=== PATIENT | female | born 1985 | race Native Hawaiian/Other Pacific Islander ===

== ENCOUNTER 2021-05-26 19:33 | Emergency (ER) | payer OTHER ==
[~2021-05-26] VITALS: Ht 160 cm; Wt 75.8 kg
[2021-05-26 21:35] VITALS: BP 103/62; TEMP 98.5
== END 2021-05-26 21:31 | disposition home or self-care (01) ==
LOC: ED 19:33
DX: R09.81 Nasal congestion (principal); S93.491A Sprain of other ligament of right ankle, initial encounter; Z20.822 Contact with and (suspected) exposure to COVID-19; X50.1XXA Overexertion from prolonged static or awkward postures, initial encounter; Y92.89 Other specified places as the place of occurrence of the external cause
CPT/HCPCS: 87635; 96372; 99283; J1100; J3490; U0003